=== PATIENT | male | born 1955 | race Caucasian/White ===

== ENCOUNTER 2021-10-16 17:23 | Outpatient (CLI) | payer MEDICARE, SELFPAY ==
[2021-10-16 17:43] VITALS: BP 123/77; PULSE 91; RESP 16; TEMP 36.9; O2SAT 100; BMI 24.3
[2021-10-16] MEDS: 0.9% Saline Lock 10 ML Syringe IV (17:45)
[2021-10-16 18:43] VITALS: BP 99/71; PULSE 75; RESP 16; TEMP 36.6; O2SAT 99
[2021-10-16 19:33] VITALS: BP 123/85; PULSE 73; RESP 16; TEMP 36.8; O2SAT 100
== END 2021-10-16 19:46 | disposition home or self-care (01) ==
LOC: MS3OUT 17:25 → MS3 17:26
PROVIDERS: Referring Provider Nurse Practitioner Adult Health; Visit Provider Nurse Practitioner Adult Health
DX: Z23 Encounter for immunization (principal); U07.1 COVID-19
CPT/HCPCS: J7050; M0245; Q0245; A4216